=== PATIENT | male | born 1990 | race Caucasian/White ===

== ENCOUNTER 2019-06-11 07:47 | Emergency (ER) | payer BC ==
[2019-06-11 07:56] VITALS: BP 128/74
--- NOTE | 2019-06-11 12:09 | UC ---
GI Bleed HPI - HPI Summary HPI Summary: PATIENT REPORTS A HISTORY OF GERD AND STATES HE HAS HAD OCCASIONAL EPISODES OF EMESIS WITH NO APPARENT TRIGGER IN THE PAST. STATES HE HAS BEEN DOING WELL FOR A COUPLE OF YEARS BUT THEN THIS MORNING WOKE UP AND HAD 5 CONSECUTIVE EPISODES OF EMESIS THAT HE DESCRIBES BRIGHT RED BLOOD MIXED WITH BILE. DENIES ANY ABDOMINAL PAIN OR NAUSEA OTHERWISE. NO FEVER. HAD NOT HAD ANYTHING TO EAT PRIOR TO VOMITING. IS NOT BLEEDING FROM ANYWHERE ELSE. DENIES ANY CHANGE IN BOWEL HABITS. HAS SEEN GI IN THE PAST. - History Of Current Complaint Chief Complaint: UCGI Stated Complaint: VOMITING BLOOD Time Seen by Provider: 06/11/19 09:16 Hx Obtained From: Patient, Family/Tar Processing Technician - Onset/Duration: Sudden Onset Severity: Hematemesis Severity Initially: Moderate Severity Currently: None Pain Intensity: 3 Pain Scale Used: 0-10 Numeric Associated Pain: None Character: Not Applicable Associated Signs And Symptoms: Negative: Back Pain, Dizziness, Syncope, Nausea, Bruising, Weight Loss - Allergies/Home medications Allergies/Adverse Reactions: Allergies Allergy/AdvReac Type Severity Reaction Status Date / Time No Known Allergies Allergy Verified 06/11/19 07:56 PMH/Surg Hx/FS Hx/Imm Hx GI/ History: Gastroesophageal Reflux - Surgical History Surgical History: None - Family History Known Family History: Positive: Non-Contributory - Social History Alcohol Use: Rare Substance Use Type: None Smoking Status (MU): Never Smoked Tobacco Review of Systems All Other Systems Reviewed And Are Negative: Yes Constitutional: Positive: Negative Respiratory: Positive: Negative Cardiovascular: Positive: Negative Gastrointestinal: Positive: Vomiting, Other - BLOODY EMESIS. Negative: Abdominal Pain, Diarrhea Genitourinary: Positive: Negative Physical Exam Triage Information Reviewed: Yes Appearance: Well-Appearing, No Pain Distress, Well-Nourished Vital Signs: Initial Vital Signs Temp 98.9 F 06/11/19 07:54 Pulse 79 06/11/19 07:54 Resp 18 06/11/19 07:54 BP 128/74 06/11/19 07:54 Pulse Ox 96 06/11/19 07:54 Vital Signs Reviewed: Yes Eyes: Positive: Conjunctiva Clear ENT: Positive: Hearing grossly normal Neck: Positive: Supple Respiratory Exam: Normal Cardiovascular Exam: Normal Abdomen Description: Positive: Soft, Other: - MODERATE RLQ TENDERNESS. NO REBOUND OR RIGIDITY. NEG PSOAS. NEG OBTURATOR. Negative: CVA Tenderness (R), CVA Tenderness (L), Distended, Guarding Bowel Sounds: Positive: Present Musculoskeletal: Positive: No Edema Neurological: Positive: Alert Psychological: Positive: Age Appropriate Behavior Skin: Negative: Rashes Bleed Course/Dx - Course Course Of Treatment: PATIENT REPORTS 5 EPISODES OF BLOODY EMESIS THIS MORNING. STATES ONE OR 2 TABLESPOONS OF BRIGHT RED BLOOD WITH EACH EPISODE MIXED WITH BILE. DENIES ANY NAUSEA AT PRESENT. NO FEVER. NO DIARRHEA. NO URINARY SYMPTOMS. PATIENT DENIED ABDOMINAL PAIN BUT ON PHYSICAL EXAM WAS FOUND TO HAVE MODERATE RIGHT LOWER QUADRANT PAIN. NO OTHER SIGNS OR SYMPTOMS CONCERNING FOR APPENDICITIS AT PRESENT. PATIENT OTHERWISE LOOKS WELL AND NONTOXIC ON EXAM. OFFERED CBC WHICH HE DECLINED. DISCUSSED TRANSFER TO THE EMERGENCY ROOM FOR FURTHER EVALUATION HOWEVER PATIENT PREFERS OUTPATIENT MANAGEMENT FOR NOW. ENCOURAGED TO CALL [facility] TODAY TO SCHEDULE FOLLOW-UP APPOINTMENT FOR THIS WEEK. ADVISED TO GO TO THE ER WITHOUT FAIL IF HE DEVELOPS WORSENING ABDOMINAL PAIN, FEVER, PERSISTENT BLOODY EMESIS OR ANY OTHER CONCERNING SYMPTOMS. - Differential Dx/Diagnosis Provider Diagnosis: Hematemesis of unknown etiology Discharge ED - Sign-Out/Discharge Documenting (check all that apply): Patient Departure All imaging exams completed and their final reports reviewed: No Studies - Discharge Plan Condition: Stable Disposition: HOME Patient Education Materials: Gastrointestinal Bleeding (ED) Referrals: [facility] [Provider Group] - 2 Days Fidencio Avendano MD [Primary Care Provider] - If Needed Additional Instructions: YOU NEED TO DETERMINE THE SOURCE OF YOUR BLEEDING. CALL YOUR GI DOCTOR TO SCHEDULE A FOLLOW-UP APPOINTMENT FOR THIS WEEK. AVOID NSAIDS SUCH IBUPROFEN AND NAPROXEN THESE CAN CAUSE GI DISTRESS. STAY WELL HYDRATED. GO TO THE ER WITHOUT FAIL IF YOU DEVELOP RECURRENT BLOODY VOMIT, SHORTNESS OF BREATH, DIZZINESS, FEVER OR ANY OTHER CONCERNING SYMPTOMS. YOU HAD SOME RIGHT LOWER QUADRANT ABDOMINAL PAIN ON EXAM TODAY. YOUR PRESENTATION IS NOT ENTIRELY CONSISTENT WITH APPENDICITIS AT PRESENT HOWEVER SHOULD THIS DISCOMFORT WORSEN I RECOMMEND YOU SEEK EVALUATION IN THE ER. - Billing Disposition and Condition Condition: STABLE Disposition: Home
== END 2019-06-11 09:45 | disposition home or self-care (01) ==
LOC: UCEAST 07:47
DX: K92.0 Hematemesis (principal)
CPT/HCPCS: 99211; G0463